=== PATIENT | female | born 1955 | race African-American/Black ===

== ENCOUNTER 2016-05-10 20:34 | Emergency (ER) | payer OTHER, MEDICAID ==
[2016-05-10] MEDS ORDERED: IBUP-1542 PO (21:32)
[2016-05-10] MEDS ORDERED: HYDR-906 PO (21:32)
[2016-05-10] MEDS ORDERED: CEPH-443 PO (21:32)
[2016-05-10] MEDS ORDERED: BACTDS PO (21:32)
[2016-05-10] MEDS ORDERED: NYST15CR28 TOP (21:36)
--- NOTE | 2016-05-10 21:58 | ERD ---
ER Documentation Chief Complaint Date/Time DATE: 05/10/16 TIME: 21:51 Chief Complaint HPI 50-year-old female presents complaining of bilateral hand swelling and erythema 5 days. She denies fevers, loss of range of motion, trauma, discharge rash bleeding, numbness and tingling. She denies history of diabetes mellitus. She has not taken any medications for relief of her, deep that she had severe pain and rates it a 10 out of 10 in severity. ROS All systems reviewed and are negative except as per history of present illness. Medications Home Meds Active Scripts Nystatin* (Nystatin*) 15 Gm Cr, 1 APPLIC TOP TID for 7 Days, TUB Prov:Leann Duckworth PA-C 05/10/16 Ibuprofen* (Motrin*) 600 Mg Tab, 600 MG PO Q6, #30 TAB Prov:Leann Duckworth-C 05/10/16 Hydrocodone/Acetaminophen ([place] 5-325 Tablet) 1 Each Tablet, 1 TAB PO Q6H Y for PAIN, #7 TAB Prov:Leann Duckworth-C 05/10/16 Cephalexin* (Keflex*) 500 Mg Capsule, 500 MG PO QID for 7 Days, #28 CAP Prov:Leann Duckworth-C 05/10/16 Sulfamethoxazole-Trimethoprim* (Bactrim* DS) 800-160 Mg Tab, 1 TAB PO BID for 7 Days, #14 TAB Prov:Leann Duckworth-C 05/10/16 Allergies Allergies: Coded Allergies: No Known Allergy (Verified , 02/23/15) PMhx/Soc History of Surgery: Yes (GASTRIC BYPASS ON 06/06/13; PICC LINE ON 07/03/13) Anesthesia Reaction: No Hx Neurological Disorder: Yes (ANXIETY) Hx Respiratory Disorders: Yes (PNA; COPD; SLEEP APNEA;) Hx Cardiac Disorders: No Hx Psychiatric Problems: No Hx Miscellaneous Medical Probl: Yes (copd, anxiety, pna, sleep apnea, obesity, as per HPI) Hx Alcohol Use: No Hx Substance Use: Yes Hx Tobacco Use: No Physical Exam Physical Exam GENERAL: Non-toxic. No apparent signs of distress. LUNGS: Clear to auscultation. No accessory muscle use. No wheezing, no crackles. No signs or symptoms of respiratory distress. HEART: Regular rate and rhythm. No murmurs, clicks, rubs or gallops. 2+ radial pulses bilaterally. EXTREMITIES: No peripheral cyanosis. No focal pain or notable trauma. Full range of motion. Good capillary refill. NEURO: The patient moves all 4 extremities with 5/5 strength. Cranial nerves are grossly intact. Normal mental status for age. Good muscle tone. SKIN: Bilateral hand edema any erythema, with several areas of excoriation. Erythema is well demarcated and ends at the wrist. No signs of trauma, track english or needle injection sites. Tender and warm to touch. No active discharge, no fluctuance. Good skin turgor. Procedures/MDM Patient present with bilateral hand edema and erythema, areas warm to touch. There is no area of fluctuance or discharge. Patient well-demarcated erythematous swelling is consistent with cellulitis. Since a skin culture was not obtained, I will be covering for MRSA in the event that this bacteria causing this infection may be methicillin resistant. I will be prescribing Bactrim and have confirmed that the patient does not have a sulfa allergy. I am also covering for Strep by prescribing Keflex, have confirmed no penicillin allergy. Patient advised to keep area clean and dry and avoid putting topical creams or medications over the area. Keep area elevated above level of the heart as often as possible to decrease swelling. Also advised to return to the ER if erythema rapidly spreads, patient develops fever, discharge begins to ooze from area, pain increases, have sudden trouble breathing or CP, and/or red streaks or track form from the infected. At this time I have a low suspicion for necrotizing fasciitis, DVT, abscess, sepsis, fracture/trauma, and osteomyelitis. Patient is stable for discharge and outpatient care and is advised to follow-up with their PCP in 1-2 days. Departure Diagnosis: Primary Impression: Cellulitis Site of cellulitis: extremity Site of cellulitis of extremity: upper extremity Laterality: unspecified laterality Qualified Code: L03.119 - Cellulitis of upper extremity, unspecified laterality Condition: Good Patient Instructions: Cellulitis Additional Instructions: Call your primary care doctor TOMORROW for an appointment during the next 1-2 days.See the doctor sooner or return here if your condition worsens before your appointment time. Leann Duckworth PA-C May 10, 2016 21:58
== END 2016-05-10 21:43 | disposition home or self-care (01) ==
LOC: E/R 20:34
DX: L03.114 Cellulitis of left upper limb (principal); L03.113 Cellulitis of right upper limb; J44.9 Chronic obstructive pulmonary disease, unspecified; E66.9 Obesity, unspecified
CPT/HCPCS: 99284

== ENCOUNTER 2016-08-11 23:31 | Emergency (ER) | payer MEDICAID, OTHER ==
[~2016-08-11 23:31] MED LIST: BACTDS PO; CEPH-443 PO; HYDR-906 PO; IBUP-1542 PO; NYST15CR28 TOP
== END 2016-08-12 01:00 | disposition left against medical advice (07) ==
LOC: E/R 23:31
DX: Z53.21 Procedure and treatment not carried out due to patient leaving prior to being seen by health care provider (principal)

== ENCOUNTER → 2017-03-06 | Emergency (ER) | payer SELFPAY ==
[~2017-03-06] VITALS: Ht 157.5 cm; Wt 50.0 kg
[2017-03-06 13:29] VITALS: Ht 157.5 cm; Wt 50.0 kg
== END | disposition left against medical advice (07) ==
LOC: E/R 13:26
DX: Z53.21 Procedure and treatment not carried out due to patient leaving prior to being seen by health care provider (principal)
CPT/HCPCS: 93005

== ENCOUNTER 2017-03-18 13:19 | Emergency (ER) | payer MEDICARE ==
[~2017-03-18] VITALS: Wt 45.0 kg
[2017-03-18] MEDS ORDERED: LIDOCAINE 1%/EPI 30 ML INJ INJ STA (14:36)
[2017-03-18] MEDS ORDERED: CEPHALEXIN 500 MG CAP PO ONE (15:00)
[2017-03-18] MEDS ORDERED: TRIMETHOPRIM/SULFAMETHOX (DS) TAB PO ONE (15:00)
[2017-03-18] MEDS ORDERED: DIPHTH/TET/ACEL PERTUSS (ADULT) 0.5 ML VIAL IM* ONE (15:00)
[2017-03-18] MEDS ORDERED: SULF1TAB31 PO (15:05)
[2017-03-18] MEDS ORDERED: CEPH-443 PO (15:05)
[2017-03-18] MEDS ORDERED: ACETAMINOPHEN 325 MG TAB PO ONE (16:00)
[2017-03-18 16:22] LABS: COCAINE Negative (NEGATIVE)
[2017-03-18 16:25] LABS: BARBITURATES Negative (NEGATIVE); BENZODIAZEPINES Negative (NEGATIVE); CANNABINOIDS Negative (NEGATIVE); OPIATES Negative (NEGATIVE)
--- NOTE | 2017-03-18 16:46 | ERD ---
ER Documentation Chief Complaint Chief Complaint LEFT UPPER ARM ABSCESS X3DAYS HPI 61 year old female presents complaining of an abscess on the left upper arm for 3 days. Patient states abscess was from a bee sting. She denies fevers or chills. Denies IV drug abuse. Denies taking any medications from this. ROS All systems reviewed and are negative except as per history of present illness. Medications Home Meds Active Scripts Sulfamethoxazole/Trimethoprim* (Bactrim Ds* Tablet) 1 Each Tablet, 1 TAB PO BID , #14 TAB Prov:ATUL WHITNEY PA-C 03/18/17 Cephalexin* (Keflex*) 500 Mg Capsule, 500 MG PO QID for 7 Days, CAP Prov:ATUL WHITNEY PA-C 03/18/17 Nystatin* (Nystatin*) 15 Gm Cr, 1 APPLIC TOP TID for 7 Days, TUB Prov:Leann Duckworth-C 05/10/16 Ibuprofen* (Motrin*) 600 Mg Tab, 600 MG PO Q6, #30 TAB Prov:Leann Duckworth-C 05/10/16 Hydrocodone/Acetaminophen ([place] 5-325 Tablet) 1 Each Tablet, 1 TAB PO Q6H Y for PAIN, #7 TAB Prov:Leann Duckworth-C 05/10/16 Cephalexin* (Keflex*) 500 Mg Capsule, 500 MG PO QID for 7 Days, #28 CAP Prov:Leann Duckworth-C 05/10/16 Sulfamethoxazole-Trimethoprim* (Bactrim* DS) 800-160 Mg Tab, 1 TAB PO BID for 7 Days, #14 TAB Prov:Leann Duckworth-C 05/10/16 Allergies Allergies: Coded Allergies: No Known Allergy (Verified , 02/23/15) PMhx/Soc History of Surgery: Yes (GASTRIC BYPASS ON 06/06/13; PICC LINE ON 07/03/13) Anesthesia Reaction: No Hx Neurological Disorder: Yes (ANXIETY) Hx Respiratory Disorders: Yes (PNA; COPD; SLEEP APNEA;) Hx Cardiac Disorders: No Hx Psychiatric Problems: No Hx Miscellaneous Medical Probl: Yes (copd, anxiety, pna, sleep apnea, obesity, as per HPI) Hx Alcohol Use: No Hx Substance Use: No (QUIT USING 20 YEARS AGO) Hx Tobacco Use: No Smoking Status: Never smoker Physical Exam Vitals Vital Signs Date Time Temp Pulse Resp B/P Pulse Ox O2 Delivery O2 Flow Rate FiO2 03/18/17 13:28 98.2 92 13 134/85 96 Physical Exam Const: No acute distress Head: Atraumatic Eyes: Normal Conjunctiva ENT: Normal External Ears, Nose. Missing most of upper teeth Neck: Full range of motion. No meningeal signs Resp: Clear to auscultation bilaterally Cardio: Regular rate and rhythm, no murmurs Abd: Soft, non tender, non distended. Skin: large ~6cm fluctuant abscess on left upper arm patient had numerous scaring throughout bilateral arms Back: No midline tenderness Ext: No cyanosis. Patient had full range of motion Neur: Awake and alert Psych: Normal Mood and Affect Results 24 hrs Laboratory Tests Test 03/18/17 15:41 Urine Opiates Screen Negative Urine Barbiturates Negative Urine Amphetamines Screen Negative Urine Benzodiazepines Screen Negative Urine Cocaine Screen Negative Urine Cannabinoids Negative Current Medications Medications (Trade) Dose Ordered Sig/Elina Route PRN Reason Start Time Stop Time Status Last Admin Dose Admin Lidocaine/ Epinephrine (Xylocaine 1%/ Epi (Pf)) 30 ml ONCE STAT INJ 03/18/17 14:36 03/18/17 14:40 DC Diphtheria/ Tetanus/Acell Pertussis (Adacel) 0.5 ml ONCE ONCE IM* 03/18/17 15:00 03/18/17 15:01 DC 03/18/17 15:05 Cephalexin (Keflex) 500 mg ONCE ONCE PO 03/18/17 15:00 03/18/17 15:01 DC 03/18/17 15:05 Trimethoprim/ Sulfamethoxazole (Bactrim (Ds)) 1 tab ONCE ONCE PO 03/18/17 15:00 03/18/17 15:01 DC 03/18/17 15:05 Acetaminophen (Tylenol Tab) 650 mg ONCE ONCE PO 03/18/17 16:00 03/18/17 16:01 DC 03/18/17 15:44 Procedures/MDM 61 year old female presents with a large abscess on the left upper arm for 3 days. Patient did not appear septic. She is afebrile. There was no evidence of osteomyelitis, lymphangitis, necrotizing fasciitis. An incision & drainage procedure was attempted, note listed below, however patient requested to stop the procedure. I have discussed the importance of I&D and the risks of increased infection, sepsis and . Patient wanted to sign AGAINST MEDICAL ADVICE with only prescription of antibiotics. The nurse was getting the AMA forms ready however patient eloped with her grandson without prescription of antibiotics. Patient presented with her young grandson who lives with her in an apartment. There was a concern that patient developed the abscess from IV drug use since there was multiple markings on her arms bilaterally that resemble skin popping and due to her history of drug abuse that was reviewed on her chart. Patient initially appeared drowsy and was not watching her grandson in the ED but did not show any evidence of active use, such as pinpoint pupils or altered mental status. Drug urine screen was negative. heater worker was consulted, at this time the urine drug screen was pending and social security benefits interviewer had to leave the department. She stated that if drug tox screen was positive in the ED, on-call social security benefits interviewer will arrive and if it is negative that another social security benefits interviewer will investigate within 5 days. PROCEDURE NOTE: Abscess was cleansed with Betadine. 15cc Lidocaine 1% with epinephrine was used as a local anesthetic. #11 blade scalpel was used to make an incision, copious drainage of purulence occurred however it was incomplete, patient would benefit from a bigger incision for drainage but patient refused at this time. She did not want to receive any more lidocaine injections and did not want me to precede, even after a lengthy discussion. I have consulted my supervising physician , who has also evaluated patient and discussed the importance of incision and drainage however patient still wanted to AMA Departure Diagnosis: Primary Impression: Abscess Condition: Fair Patient Instructions: Abscess, Incision And Drainage Referrals: KRISTINE SUNSHINE MD (PCP) Additional Instructions: FOLLOW UP WITH YOUR PRIMARY CARE PHYSICIAN TOMORROW.Return to this facility if you are not improving as expected. Take all medicines as directed. ATUL WHITNEY PA-C Mar 18, 2017 16:46
== END 2017-03-18 18:04 | disposition home or self-care (01) ==
LOC: FTE 13:19
DX: L02.414 Cutaneous abscess of left upper limb (principal); J44.9 Chronic obstructive pulmonary disease, unspecified; E66.9 Obesity, unspecified; Z87.891 Personal history of nicotine dependence
CPT/HCPCS: 80307; 90471; 90715

== ENCOUNTER 2017-08-26 11:28 | Emergency (ER) | END 2017-08-26 15:54 | disposition home or self-care (01) ==